=== PATIENT | female | born 1995 | race Caucasian/White ===

== ENCOUNTER 2022-08-07 08:41 | Outpatient (CLI) | payer MEDICAID, SELFPAY ==
--- OUTSIDE RECORDS SUMMARY | 2022-08-07 08:43 | XMS_ITS | Clinical Summary ---
:1995 Author Organization [facility] [place] [address] Care Team Providers Name Role Phone Mackenzie King MD Primary Care Provider [phone] Allergies Active Allergy Reactions Severity Noted Date Comments Bee Venom Protein (Honey Bee) Edema 04/04/2022 Cats (Fur, Dander, Saliva) Runny Nose 03/03/2016 Penicillins 08/20/2010 Medications Medication Sig Dispensed Refills Start Date End Date Status copper intrauterine Inject 1 Device 1 Device 0 09/26/2015 Active device intrauterine one (PARAGARD)Indication time. s: IUD contraception EPINEPHrine (EPIPEN) Inject 0.3 mg (1 2 Each 3 04/16/2022 Active 0.3 mg/0.3 mL pen) intramuscular auto-injectorIndicat each time if needed ions: Allergy to for Allergic honey bee venom Reaction. fluconazole 0 05/16/2022 Active (DIFLUCAN) 150 mg tablet albuterol HFA INHALE 1 TO 2 PUFFS 18 g 0 05/26/2022 Active (Ventolin HFA) 90 BY MOUTH EVERY 4 mcg/actuation HOURS NEEDED inhalerIndications: Cough Active Problems Problem Noted Date Vaginitis and vulvovaginitis 05/22/2021 Acne vulgaris 12/12/2016 Dysmenorrhea 04/29/2013 Allergic rhinitis, cause unspecified 07/12/2011 Encounters Date Type Specialty Care Team Description 07/07/2022 Office Visit Flory Benavides PA Vag inal Problem (07/04 itchy, uncomfor table) 07/07/2022 Travel 06/10/2022 Travel 06/10/2022 Nurse Triage Mackenzie King, Head Injury 05/25/2022 Refill FernandoMackenzie acosta Refi ll Request (Rodri Tate) 05/22/2022 Office Visit Zora Vargas Vaginal Problem (ongoing MD Nina since 05/07) 05/22/2022 Travel 05/15/2022 Telephone Sanjiv Hussein DO Need M eds (Fluconazole) 05/13/2022 Orders Only Sanjiv Hussein, <No sc ans attached> 05/13/2022 Telephone Sanjiv Hussein DO Medica tion Management 05/12/2022 Office Visit Sanjiv Hussein DO Vagina l Problem (Sx x 5 days. Burning a nd itching in vaginal area . Skin tender to touch . No new discharge. Did use a Monistat 1 day on 05/09/22. Symptoms have i mproved. ) 05/12/2022 Travel 05/09/2022 Refill Mackenzie King Refi ll Request (Rodri Tate) from Last 3 Months Immunizations Name Administration Dates Next Due AMB Influenza, IIV4 PF (=>6 mos 08/13/2019 Flulaval,Fluzone Fluarix)(Flu Clinic Only) COVID-19 vaccine (Moderna 01/09/2021, 12/12/2020 100mcg/0.5mL) PF, MDV DTP 1996, 1996 DTaP 04/15/2001, 08/09/1997, 1996 Hepatitis A (Peds) 04/12/2009, 04/06/2008 Hepatitis B (Peds) 01/10/1997, 1996, 1996 Hib Conjugate, Unspecified 04/14/1997, 1996, 6, 1996 Human Papilloma Virus Vaccine 04/29/2013, 07/26/2012, 2010 Inactivated Polio Vaccine 04/15/2001 Influenza, IIV3 (Age >=3 years) 08/22/2013, 07/26/2012, 07/29, 08/20/2010 MMR 04/15/2001, 04/14/1997 Meningococcal Vaccine 09/26/2008 Meningococcal Vaccine (Menveo) 04/29/2013 Polio Virus, Unspecified 1996, 1996, 1996 Tdap 05/25/2020, 05/27/2007 Tuberculin (PPD) 07/23/2012, 08/15/2011 Typhoid (injectable) 04/06/2014 Yellow Fever 04/06/2014 Family History Medical History Relation Name Comments Cancer Maternal Aunt Thyroid Diabetes Maternal Grandfather Hyperlipidemia Maternal Grandmother Allergies Mother Diabetes Paternal Grandfather Relation Name Status Comments Maternal Aunt Maternal Grandfather Maternal Grandmother Mother Paternal Grandfather Social History Tobacco Use Types Packs/Day Years Used Date Never Smoker Smokeless Tobacco: Never Used Tobacco Cessation: Counseling Given: Yes Alcohol Use Standard Drinks/Week Comments Yes 0 (1 standard drink = 0.6 oz pure alcoho l) occ Alcohol Habits Answer Date Recorded How often do you have a drink containing alcohol? Not asked How many drinks containing alcohol do you have on a typical Not asked day when you are drinking? How often do you have six or more drinks on one occasion? No t asked Comment: occ 04/16/2022 Sex Assigned at Date Recorded Not on file Obstetrics History Para Term AB IAB SAB Ectopic Multiple Living Live Births 0 0 0 0 0 0 0 0 0 0 Last Filed Vital Signs Vital Sign Reading Time Taken Comments Blood Pressure 108/70 07/07/2022 11:41 AM CDT Pulse 72 07/07/2022 11:41 AM CDT Temperature 37.4 ??C (99.3 ??F) 04/16/2022 10:06 AM CDT Respiratory Rate 18 04/04/2022 5:18 PM CDT Oxygen Saturation 99% 07/07/2022 11:41 AM CDT Inhaled Oxygen Concentration - - Weight 52 kg (114 lb 11.2 oz) 07/07/2022 11:41 AM CDT Height 165.7 cm (5' 5.25) 04/16/2022 10:06 AM CDT Body Mass Index 18.94 04/16/2022 10:06 AM CDT Plan of Treatment Health Maintenance Due Date Last Done Comments COVID-19 vaccine series (4 - 10/14/2021 08/19/2021, 021, Booster for Moderna series) 12/12/2020 Influenza for age 9-49 05/29/2022 08/13/2019, 08/22/2013, 07/26/2012, Additional history exists BMI (ht and wt on same day) for 04/16/2023 04/16/2022, 01/26, age 18+ 11/01/2020, Additional history exists Depression screening for age 12+ 04/16/2023 04/16/2022, 04/2019, 04/06/2017 Pap test for age 21-65 05/25/2023 05/25/2020, 04/06/2017 Tetanus booster 05/25/2030 05/25/2020, 05/27/2007 HPV series for age 9-26 Completed 04/29/2013, 07/26/2012, 08/14/2011, Additional history exists Hepatitis C screening for age Completed 10/24/2019 18-79 Tdap Completed 05/25/2020, 05/27/2007 Procedures Procedure Name Priority Date/Time Associated Diagnosis Comme nts GC CHLAMYDIA TRACH Routine 07/07/2022 12:02 PM Vaginal irritat ion Results for this PROBE CDT procedure are i n the results section. TRICHOMONAS, Routine 07/07/2022 12:02 PM Vaginal irritation Re sults for this RADHA, AND CDT procedure are i n BACTERIAL VAGINOSIS the resu lts BY VIKASH section. TRICHOMONAS, Routine 05/22/2022 9:52 AM Vaginal irritation Res ults for this RADHA, AND CDT procedure are i n BACTERIAL VAGINOSIS the resu lts BY VIKASH section. TRICHOMONAS, Routine 05/12/2022 8:29 AM Vaginal irritation Res ults for this RADHA, AND CDT procedure are i n BACTERIAL VAGINOSIS the resu lts BY VIKASH section. from Last 3 Months Results TRICHOMONAS, RADHA, AND BACTERIAL VAGINOSIS BY VIKASH (07/07/2022 12:02 PM CDT) Only the most recent of3 resultswithin the time period is included. [facility] Method Time Signature RADHA SPECIES Negative Negative 07/08/2022 [facility] 2:19 AM CDT [facility] RADHA Negative Negative 07/08/2022 [facility] 2:19 AM CDT [facility] TRICHOMONAS VVA Negative Negative 07/08/2022 [facility] 2:19 AM CDT [facility] BACTERIAL Negative Negative 07/08/2022 [facility] V[facility]INOSIS 2:19 AM CDT [facility] Specimen Anatomical Collection Method Collection Time Receive d Time (Source) Location / / Volume Laterality Other VAGINAL SWAB / Non-Blood / 07/07/2022 12:02 2 Unknown Unknown PM CDT 12:14 PM CDT [facility] Performing Organization Address City/State/ZIP Code Phon e Number [facility] [address] [place] [address] [facility]ATORY[facility] 2000 LABORATORY GC & CHLAMYDIA DNA PCR [[id number]] (07/07/2022 12:02 PM CDT) [facility] Method Time Signature CHLAMYDIA PROBE Negative 07/08/2022 [facility] 3:16 AM CDT [facility] TRAL [facility] N GONORRHOEAE Negative 07/08/2022 [facility] PROBE 3:16 AM CDT [facility] Specimen Anatomical Collection Method Collection Time Receive d Time (Source) Location / / Volume Laterality Other VAGINAL SWAB / Non-Blood / 07/07/2022 12:02 2 Unknown Unknown PM CDT 12:14 PM CDT [facility] Performing Organization Address City/State/ZIP Code Phon e Number [facility] [address] [place] [address] LABORATORY[facility] 1999 LABORATORY from Last 3 Months Insurance Payer Benefit Plan / Subscriber ID Effective Dates Phone Addre ss Type Group WC [facility] [id number] 2021-Prese [phone] [employer] COMP INSURANCE nt 58 [address] [place]ER [address] [employer] [place] [facility] [place] [id number] 2022-Presen [address] [place] [address] Guarantor Name Account Type Relation to Date of Phone Bill ing Patient Address Josefa Mendez Personal/Family Self 1995 [address] (Home) [place] [address] Josefa Mendez Workers Comp Self 1995 [address] ([address]) [place] [address] Care Teams Foster Care Case Manager Relationship Specialty Start Date End Date Mackenzie King MD PCP - General Family Practice 08/22/13 [address] [place] [address]
[2022-08-07 11:49] LABS: Glucose* 87 mg/dL (60-115)
== END 2022-08-07 08:42 | disposition home or self-care (01) ==
PROVIDERS: PCP Student in an Organized Health Care Education/Training Program; Visit Provider Physician Assistant
DX: B37.31 Acute candidiasis of vulva and vagina (principal); N89.8 Other specified noninflammatory disorders of vagina
CPT/HCPCS: 82947; 87102; 87158; 87186

== ENCOUNTER 2022-09-30 14:14 | Outpatient (CLI) | payer MEDICAID, SELFPAY ==
[2022-09-30 17:34] LABS: Chlamydia DNA Amplified* NOT DETECTED (No Detected); GC DNA Amplified* NOT DETECTED (No Detected)
== END 2022-09-30 14:15 | disposition home or self-care (01) ==
PROVIDERS: PCP Student in an Organized Health Care Education/Training Program; Visit Provider Registered Nurse
DX: N89.8 Other specified noninflammatory disorders of vagina (principal); B37.31 Acute candidiasis of vulva and vagina
CPT/HCPCS: 87102; 87109; 87491; 87591

== ENCOUNTER 2023-12-24 08:25 | Outpatient (CLI) | payer MEDICAID, SELFPAY ==
[2023-12-24 10:29] LABS: Chlamydia DNA Amplified* NOT DETECTED (No Detected); GC DNA Amplified* NOT DETECTED (No Detected)
== END 2023-12-24 08:26 | disposition home or self-care (01) ==
LOC: NFLDREF 08:26
PROVIDERS: PCP Student in an Organized Health Care Education/Training Program; Visit Provider Physician Assistant
DX: B37.31 Acute candidiasis of vulva and vagina (principal)
CPT/HCPCS: 87491; 87591

== ENCOUNTER 2024-01-06 08:23 | Outpatient (CLI) | payer MEDICAID, SELFPAY ==
--- OUTSIDE RECORDS SUMMARY | 2024-01-06 08:27 | XMS_ITS | Clinical Summary ---
Author Name Unknown Organization [facility] Address [place], [place] [address] Care Team Providers Care Drink Box Mechanic Name Role Phone Mackenzie King MD Primary Care Provider Allergies Active Allergy Reactions Criticality Noted Date Comments Bee Venom Protein (Honey Bee) Edema 2021 Cats (Fur, Dander, Saliva) Runny Nose 6 Penicillins 08/20/2010 Medications Medication Sig Dispensed Refills Start Date End Date Status copper intrauterine device (PARAGARD)Indication s:IUD contraception Inject 1 Device intrauterine one time. 1 Device 0 09/26/2015 Active EPINEPHrine (EPIPEN) 0.3 mg/0.3 mL auto-injectorIndicat ions:Allergy to honey bee venom Inject 0.3 mg (1 Pen) intramuscular each time if needed for Allergic Reaction. 2 Each 3 09/02/2023 Active albuterol HFA (Ventolin HFA) 90 mcg/actuation inhalerIndications:C ough INHALE 1 TO 2 PUFFS BY MOUTH EVERY 4 HOURS NEEDED 18 g 10/20/2023 Active albuterol HFA (Ventolin HFA) 90 mcg/actuation inhalerIndications:C ough INHALE 1 TO 2 PUFFS BY MOUTH EVERY 4 HOURS NEEDED 18 g 5 11/23/2023 Active Active Problems Problem Noted Date Diagnosed Date Pap smear for cervical cancer screening 09/10/20 Overview: 08/2023 NIL/HPV negative. Plan: Pap/HPV due 08/2028. Vaginitis and vulvovaginitis 05/22/2021 Acne vulgaris 12/12/2016 Dysmenorrhea 04/29/2013 Allergic rhinitis, cause unspecified 07/12/2011 Encounters Date Type Department Care Team Description 11/23/2023 Refill [facility] [address] [place] [address] Mackenzie King MD Refill Request; VENTOLIN HFA 10/20/2023 Telephone [facility] [address] [place] [address] Mackenzie King MD Medication Management (albuterol HFA (Ventolin HFA) 90 mcg/actuation inhaler) 10/19/2023 Telephone [facility] [address] [place] [address] Mackenzie King MD Medication Management (albuterol HFA (Ventolin HFA) 90 mcg/actuatio) 10/16/2023 Refill [facility] [address] [place] [address] Mackenzie King MD Refill Request; ALBUTEROL HFA from Last 3 Months Immunizations Name Administration Dates Next Due AMB Influenza, IIV4 PF (=>6 mos Flulaval,Fluzone Fluarix)(Flu Clinic Only) 08/13/2019 COVID-19 vaccine (Moderna 100mcg/0.5mL) PF, MDV 01/09/2021,12/12/2020 DTP 1996,1996 DTaP 04/15/2001,08/09/1997,1996 Hepatitis A (Peds) 04/12/2009,04/06/2008 Hepatitis B (Peds) 01/10/1997,1996, 996 Hib Conjugate, Unspecified 04/14/1997,,1996,06/09 Human Papilloma Virus Vaccine 04/29/2013, 012,08/14/2011 Inactivated Polio Vaccine 04/15/2001 Influenza, IIV3 (Age >=3 years) 08/22/20 13,07/26/2012,08/14/2011,08/20 Influenza,CCIIV4 PRESERV FREE 08/12/2022 MMR 04/15/2001,04/14/1997 Meningococcal Vaccine 09/26/2008 Meningococcal Vaccine (Menveo) 04/29/2013 Polio Virus, Unspecified 1996,1996,0 1996 Tdap 05/25/2020,05/27/2007 Tuberculin (PPD) 07/23/2012,08/15/2011 Typhoid (injectable) 04/06/2014 Yellow Fever 04/06/2014 Family History Medical History Relation Name Comments Rheum arthritis Father takes methot rexate Cancer Maternal Aunt Thyroid Diabetes Maternal Grandfather Hyperlipidemia Maternal Grandmother Allergies Mother Autoimmune disease Mother Diabetes Paternal Grandfather Heart Disease No Family History Hypertension No Family History Relation Name Status Comments Father Alive Maternal Aunt Maternal Grandfather Maternal Grandmother Mother Alive Paternal Grandfather Social History Tobacco Use Types Packs/Day Years Used Date Smoking Tobacco: Never Smokeless Tobacco: Never Tobacco Cessation:Counseling Given: Yes Alcohol Use Standard Drinks/Week Comments Yes 5 (1 standard drink = 0.6 oz pur e alcohol) PHQ-2 Answer Date Recorded PHQ-2 TOTAL SCORE 0 09/02/2023 Social Connections Answer Date Recorded Frequency of Communication with Friends and Fami ly 0 09/02/2023 Financial Resource Strain Answer Date R ecorded Difficulty of Paying Living Expenses 3 09/02/2023 Difficulty of Paying Living Expenses Not on file 09/02/2023 Food Insecurity Answer Date Recorded Worried About Running Out of Food in the Last Ye ar 1 09/02/2023 Transportation Needs Answer Date Record ed Lack of Transportation (Medical) 1 09/02/2023 Housing Stability Answer Date Recorded Unable to Pay for Housing in the Last Year 1 09/02/2023 Sex and Gender Information Value Date Recorded Sex Assigned at Not on file Gender Identity Not on file Sexual Orientation Not on file Obstetrics History Para Term AB IAB SAB Ectopic Multiple Livin g Live Births 0 0 0 0 0 0 0 0 0 0 Last Filed Vital Signs Vital Sign Reading Time Taken Comments Blood Pressure 103/68 09/02/2023 12:58 PM BOTTLING MACHINE OPERATOR Pulse 82 09/02/2023 12:58 PM BOTTLING MACHINE OPERATOR Temperature 36.7 ??C (98.1 ??F) 09/02/2023 12:[address] Respiratory Rate 18 04/04/2022 5:18 PM CDT Oxygen Saturation 97% 09/02/2023 12:58 PM BOTTLING MACHINE OPERATOR Inhaled Oxygen Concentration - - Weight 54.9 kg (121 lb) 09/02/2023 12:58 PM BOTTLING MACHINE OPERATOR Height 164 cm (5' 4.57) 09/02/2023 12:58 PM BOTTLING MACHINE OPERATOR Body Mass Index 20.41 09/02/2023 12:58 PM BOTTLING MACHINE OPERATOR Plan of Treatment Health Maintenance Due Date Last Done Comments COVID-19 vaccine series (2022- season) 2023 08/12/2022, 08/19/2021, 01/09/2021, Additional history exists Influenza for age 9-49 05/29/2024 , 08/13/2019, 08/22/2013, Additional history exists BMI (ht and wt on same day) for age 18+ 09/02/2024 09/02/2023, 04/16/2022, 02/11/2021, Additional history exists Depression screening for age 12+ 09/02/2024 09/02/2023, 04/16/2022, 12/03/2018, Additional history exists Pap test for age 21-65 09/02/2028 , 09/02/2023, 05/25/2020, Additional history exists Tetanus booster 05/25/2030 05/25/2020, 05/27/2007 Hepatitis C screening for age 18-79 Completed 10/24/2019 Tdap Completed 05/25/2020, 05/27/2007 HIV for age 15-65 Completed 04/16/2022, 10/24/2019 Pneumococcal series for age 6-64 Aged Out No longer eligible based on patient's age to complete this topic Procedures Procedure Name Priority Date/Time Associated Diagnosis Comments ORACLE EBS ARCHITECT THIN PREP PAP SCREEN IMAGED Routine 09/02/2023 2:15 PM BOTTLING MACHINE OPERATOR Cervical cancer screening ANTI HIV 1/2 Routine 04/16/2022 11:22 AM CDT Routine screening for STI (sexually transmitted infection) ANTI HCV Routine 10/24/2019 11:19 AM BOTTLING MACHINE OPERATOR Encounter for assessment of STD exposure from Last 3 Months or Most Recently Relevant to Health Maintenance Results * ORACLE EBS ARCHITECT THIN PREP PAP SCREEN IMAGED (09/02/2023 2:15 PM BOTTLING MACHINE OPERATOR) Case Report Gynecologic Cytology Report ? Case: [id number] ? Authorizing Provider: ??Stefany Reece ?Collected: ? 09/02/2023 1415 ? MD Kandace ? Ordering Location: ? [facility] ?? Received: ?09/02/2023 1415 ? Clinic ? First Screen: ?Geetha Flores ? Specimen: ?ORACLE EBS ARCHITECT ThinPrep Vial Screening, Cervical ? 09/10/2023 1:25 PM BOTTLING MACHINE OPERATOR [facility] INTERPRETATION/ RESULT NEGATIVE FOR INTRAEPITHELIAL LESION OR MALIGNANCY (NIL) (none) 09/10/2023 1:25 PM BOTTLING MACHINE OPERATOR [facility] IMEN ADEQUACY Satisfactory for evaluation Endocervical component present 09/10/2023 1:25 PM BOTTLING MACHINE OPERATOR [facility] HPV REQUEST HPV not requested 2022 1:25 PM BOTTLING MACHINE OPERATOR [facility] Date of LMP 08/11/2023 09/10/2023 1:25 PM BOTTLING MACHINE OPERATOR [facility] Last Pap Date 05/25/20 09/10/2023 1:25 PM BOTTLING MACHINE OPERATOR [facility] Last Pap Result NIL 1:25 PM BOTTLING MACHINE OPERATOR [facility] Abnormal Pap or [place] Bx in last 5 years No 09/10/2023 1:25 PM BOTTLING MACHINE OPERATOR [facility] Menstrual Status Regular Periods 09/10/2023 1:25 PM BOTTLING MACHINE OPERATOR [facility] [place] Bx Done Today No 09/10/2023 1:25 PM BOTTLING MACHINE OPERATOR [facility] Additional Information None given 09/10/2023 1:25 PM BOTTLING MACHINE OPERATOR [facility] Comment: Cytology is screened at [facility] - [address], [place] [address] and [facility] - [address], [place] [address] and [facility] - [address] [place] [address] Interpreted at [facility] - [address] [place] [id number] Automated Review Successful 09/10/2023 1:25 PM BOTTLING MACHINE OPERATOR [facility] Comment:Specimen processed s uccessfully by automated archivist military history device, ThinPrep Imaging System, [employer] Note The pap test is a screening technique, not a diagnostic procedure. It is used primarily to screen for squamous cancers and precursor lesions. Published studies have shown that it is subject to both false negative and false positive results. The pap test should not be used as the sole means to diagnose or exclude pre-malignant and malignant lesions. 09/10/2023 1:25 PM BOTTLING MACHINE OPERATOR [facility] Other (Cervical) Non-Blood / Unknown 09/02/2023 2:15 PM BOTTLING MACHINE OPERATOR 09/02/2023 2:15 PM BOTTLING MACHINE OPERATOR Stefany Reece MD PATHOLOGY/ CYTOLOGY [facility] [address] [place] [address], * ANTI HIV 1/2 (04/16/2022 11:22 AM CDT) HIV-1/HIV-2 ANTIBODY Non-Reacti ve Non-Reacti ve 04/17/2022 12:35 AM CDT [facility] Comment:HIV-1 p24 and HIV-1/ HIV-2 Ab not detected. Blood BLOOD SPECIMEN / Unknown Venipuncture / Unknown 04/16/2022 11:22 AM CDT 04/16/2022 11:23 AM CDT Marie Mccrary MD SEND OUTS [facility] [address] [place] [address], * ANTI HCV (10/24/2019 11:19 AM BOTTLING MACHINE OPERATOR) HEPATITIS C ANTIBODY Non-React fabrice Non-React fabrice 10/24/2019 4:48 PM BOTTLING MACHINE OPERATOR [facility] Comment:Antibodies to HCV no t detected; does not exclude the possibility of exposure to HCV. Blood BLOOD SPECIMEN / Unknown Venipuncture / Unknown 10/24/2019 11:19 AM BOTTLING MACHINE OPERATOR 10/24/2019 11:20 AM BOTTLING MACHINE OPERATOR Mireille SINCLAIR SEND OUTS [facility] [address] [place] [address], from Last 3 Months or Most Recently Relevant to Health Maintenance Care Teams Drink Box Mechanic Relationship Specialty Start Date End Date Mackenzie King MD [address] [place] [address] PCP - General Family Practice 08/22/13
== END 2024-01-06 08:24 | disposition home or self-care (01) ==
LOC: NFLDREF 08:24
PROVIDERS: PCP Student in an Organized Health Care Education/Training Program; Visit Provider Registered Nurse
DX: N92.6 Irregular menstruation, unspecified (principal); Z83.49 Family history of other endocrine, nutritional and metabolic diseases; Z13.29 Encounter for screening for other suspected endocrine disorder
CPT/HCPCS: 84443

== ENCOUNTER 2024-10-04 17:33 | Outpatient (CLI) | payer MEDICAID, SELFPAY ==
[2024-10-04 22:29] LABS: Chlamydia DNA Amplified* NOT DETECTED (No Detected); GC DNA Amplified* NOT DETECTED (No Detected)
== END 2024-10-04 17:34 | disposition home or self-care (01) ==
LOC: NFLDREF 17:34
PROVIDERS: PCP Student in an Organized Health Care Education/Training Program; Visit Provider Registered Nurse
DX: Z11.3 Encounter for screening for infections with a predominantly sexual mode of transmission (principal)
CPT/HCPCS: 87491; 87591

== ENCOUNTER 2024-12-20 09:45 | Emergency (ER) | payer MEDICAID, SELFPAY ==
--- OUTSIDE RECORDS SUMMARY | 2024-12-20 09:47 | XMS_ITS | Clinical Summary ---
Author Organization [employer] [facility] Address [address] [place] [address] Care Team Providers Care Elderly Companion Name Role Phone Mackenzie King MD Primary Care Provider Allergies Active Allergy Reactions Criticality Noted Date Comments Bee Venom Protein (Honey Bee) Edema 2021 Cats (Fur, Dander, Saliva) Runny Nose 6 Penicillins 08/20/2010 Medications copper intrauterine device (PARAGARD)Indica tions:IUD contraception Inject 1 Device intrauterine one time. 1 Device 0 09/26/20 15 Active triamcinolone (ARISTOCORT; KENALOG) 0.1 % creamIndications :Rash Apply topically to affected area(s) two times daily. 30 g 10/18/19 25 Active albuterol HFA (Ventolin HFA) 90 mcg/actuation inhalerIndicatio ns:Subacute cough INHALE 1 TO 2 PUFFS BY MOUTH EVERY 4 HOURS NEEDED 18 g 11/21/19 25 Active mometasone-formo terol (Dulera) 100-5 mcg/actuation inhalerIndicatio ns:Asthma, unspecified asthma severity, unspecified whether complicated, unspecified whether persistent (HC) Inhale 2 Puffs by mouth two times daily. 13 g 11 11/29/19 25 Active EPINEPHrine (EPIPEN) 0.3 mg/0.3 mL auto-injectorInd ications:Allergy to honey bee venom Inject 0.3 mg (1 Pen) intramuscular each time if needed for Allergic Reaction. 2 Each 3 11/29/19 25 Active EPINEPHrine (EPIPEN) 0.3 mg/0.3 mL auto-injectorInd ications:Allergy to honey bee venom Inject 0.3 mg (1 Pen) intramuscular each time if needed for Allergic Reaction. 2 Each 3 09/02/20 23 025 Discontinu ed(Reorder (E-cancel not sent)) albuterol HFA (Ventolin HFA) 90 mcg/actuation inhalerIndicatio ns:Cough INHALE 1 TO 2 PUFFS BY MOUTH EVERY 4 HOURS NEEDED 18 g 10/20/19 24 025 Discontinu ed(Reorder (E-cancel not sent)) albuterol HFA (Ventolin HFA) 90 mcg/actuation inhalerIndicatio ns:Cough INHALE 1 TO 2 PUFFS BY MOUTH EVERY 4 HOURS NEEDED 18 g 5 11/23/19 24 025 Discontinu ed(Duplica te therapy (E-cancel not sent)) mometasone-formo terol (Dulera) 200-5 mcg/actuation inhalerIndicatio ns:Asthma, unspecified asthma severity, unspecified whether complicated, unspecified whether persistent (HC) Inhale 2 Puffs by mouth two times daily. 13 g 11 11/29/19 25 025 Discontinu ed(*Error/ entry clerk error) Active Problems Problem Noted Date Diagnosed Date Pap smear for cervical cancer screening 09/10/20 23 Overview (09/17/2023): 08/2023 NIL/HPV negative. Plan: Pap/HPV due 08/2028. Vaginitis and vulvovaginitis 05/22/2021 Acne vulgaris 12/12/2016 Dysmenorrhea 04/29/2013 Allergic rhinitis, cause unspecified 07/12/2011 Encounters Date Type Department Care Team Description 12/20/2024 Nurse Triage [facility] [address] [place] [address] Mackenzie King MD Jaw Pain 11/28/2024 8:40 AM ADMINISTRATION PROFESSIONAL Office Visit [facility] [address] [place] [address] Jesus Phillips MD Allergies (ENVIRONMENTAL ALLERGIES, BEE ALLERGY, DISCUSS IMMUNOTHERAPY (self referral)) 11/28/2024 Travel 11/21/2024 1:25 PM ADMINISTRATION PROFESSIONAL Office Visit [facility] [address] [place] [address] Mackenzie King MD Physical (29 yr/Labs/Left thumb is sore/Right big toe, is sore./Nose recently started hurting where it had been broken in past.) 11/21/2024 Travel 10/27/2024 Telephone [facility] [address] [place] [address] Jesus Phillips MD Appointment 10/17/2024 Refill [facility] [address] [place] [address] Misty Selby, Refill Request (Triamcinolone) from Last 3 Months Immunizations Immunization Administration Dates Next Due AMB Influenza, IIV4 PF (=>6 mos Flulaval,Fluzone Fluarix)(Flu Clinic Only) 08/13/2019 COVID-19 vaccine (Moderna 100mcg/0.5mL) PF, MDV 01/09/2021,12/12/2020 DTP 1996,1996 DTaP 04/15/2001,08/09/1997,1996 Hepatitis A (Peds) 04/12/2009,04/06/2008 Hepatitis B (Peds) 01/10/1997,1996, 996 Hib Conjugate, Unspecified 04/14/1997,,1996,06/09 Human Papilloma Virus Vaccine 04/29/2013, 012,08/14/2011 Inactivated Polio Vaccine 04/15/2001 Influenza, IIV3 (Age >=3 years) 08/22/20 13,07/26/2012,08/14/2011,08/20 Influenza,CCIIV4 PRESERV FREE 08/12/2022 MENINGOCOCCAL VACCINE 2 VIAL 2MO-55YO (MENVEO) 04/29/2013 MMR 04/15/2001,04/14/1997 Meningococcal Vaccine 09/26/2008 Polio Virus, Unspecified 1996,1996,0 1996 Tdap 05/25/2020,05/27/2007 [...] Answer Date Recorded PHQ-2 TOTAL SCORE 0 11/21/2024 Social Connections Answer Date Recorded Do you often feel lonely or isolated from those around you? 0 11/21/2024 Financial Resource Strain Answer Date R ecorded Difficulty of Paying Living Expenses 3 11/21/2024 Difficulty of Paying Living Expenses Not on file 11/21/2024 Food Insecurity Answer Date Recorded Do you worry your food will run out before you are able to buy more? 1 11/21/2024 Transportation Needs Answer Date Record ed Does lack of transportation keep you from medica l appointments? 1 11/21/2024 Does lack of transportation keep you from work, meetings or getting things that you need? 1 11/21/2024 Housing Stability Answer Date Recorded What is your housing situation today? 1 11/21/2024 Utilities Answer Date Recorded Do you have trouble paying f or utilities (for example, heat, electricity, water, phone)? 1 11/21/2024 Comments No Sex and Gender Information Value Date Recorded Sex Assigned at Not on file Legal Sex Female 8:01 AM ADMINISTRATION PROFESSIONAL Gender Identity Not on file Sexual Orientation Not on file Occupation Industry Job Start Date Job End Date [employer] Not on file Not on file Not on file Obstetrics History Para Term AB IAB SAB Ectopic Multiple Livin g Live Births 0 0 0 0 0 0 0 0 0 0 Last Filed Vital Signs Vital Sign Reading Time Taken Comments Blood Pressure 107/71 11/28/2024 8:41 AM ADMINISTRATION PROFESSIONAL Pulse 71 11/28/2024 8:41 AM ADMINISTRATION PROFESSIONAL Temperature 36.7 C (98.1 F) 11/28/2024 8:41 AM ADMINISTRATION PROFESSIONAL Respiratory Rate 18 05/17/2024 1:10 PM CDT Oxygen Saturation 98% 11/28/2024 8:41 AM ADMINISTRATION PROFESSIONAL Inhaled Oxygen Concentration - - Weight 63.1 kg (139 lb 3.2 oz) 11/28/2024 8:41 A M ADMINISTRATION PROFESSIONAL Height 165.5 cm (5' 5.16) 11/28/2024 8:41 AM CS T Body Mass Index 23.05 11/28/2024 8:41 AM ADMINISTRATION PROFESSIONAL Plan of Treatment Upcoming Encounters Date Type Department Care Team (Late st Contact Info) Description 01/02/2025 8:00 AM CDT Office Visit [facility] [address] [facility] [address] [place], [place] [id number] Neo Griffin MD [address] [facility] [address] [place], [place] [id number] 02/02/2025 3:45 PM CDT Office Visit [facility] [address] [place] [address] Sandra Parsons MD [address] [facility] [address] [facility] [address] [place], [place] [id number] Health Maintenance Due Date Last Done Comments COVID-19 vaccine series ( season) 2024 08/12/2022, 08/19/2021, 01/09/2021, Additional history exists Influenza Vaccine (#1) 2024 , 08/13/2019, 08/22/2013, Additional history exists Depression screening for age 12+ 11/21/2025 11/21/2024, 09/02/2023, 04/16/2022, Additional history exists BMI (ht and wt on same day) for age 18+ 11/28/2025 11/28/2024, 11/21/2024, 09/02/2023, Additional history exists Pap test for age 21-65 01/05/2029 4, 01/06/2024, 09/02/2023, Additional history exists Tetanus booster 05/25/2030 05/25/2020, 05/27/2007 Hepatitis C screening for age 18-79 Completed 10/24/2019 Tdap Completed 05/25/2020, 05/27/2007 HIV for age 15-65 Completed 04/16/2022, 10/24/2019 Pneumococcal series for age 6-49 Aged Out No longer eligible based on patient's age to complete this topic Procedures Procedure Name Priority Date/Time Associated Diagnosis Comments MA PERCUTANEOUS TESTS W/ALLERGENIC EXTRACTS Routine 11/28/2024 12:00 AM ADMINISTRATION PROFESSIONAL Allergic rhinitis, unspecified seasonality, unspecified trigger Asthma, unspecified asthma severity, unspecified whether complicated, unspecified whether persistent (HC) ANTINUCLEAR ANTIBODIES TITER AND PATTERN ([facility] REFLEX ONLY) Routine 11/21/2024 2:19 PM ADMINISTRATION PROFESSIONAL HEMOGLOBIN A1C Routine 11/21/2024 2:19 PM ADMINISTRATION PROFESSIONAL Diabetes mellitus screening CBC WITH AUTO DIFFERENTIAL Routine 11/21/2024 2:19 PM ADMINISTRATION PROFESSIONAL Chronic pain of left thumb Great toe pain, right COMP METABOLIC PANEL Routine 11/21/2024 2:19 PM ADMINISTRATION PROFESSIONAL Diabetes mellitus screening Family history of chronic liver disease LIPID PANEL W REFLEX MEASURED LDL Routine 11/21/2024 2:19 PM ADMINISTRATION PROFESSIONAL Lipid screening RA QUANTITATIVE Routine 11/21/2024 2:19 PM ADMINISTRATION PROFESSIONAL Chronic pain of left thumb Great toe pain, right C-REACTIVE PROTEIN Routine 11/21/2024 2: 19 PM ADMINISTRATION PROFESSIONAL Chronic pain of left thumb Great toe pain, right ANTINUCLEAR ANTIBODY BY IFA Routine 11/21/2024 2:19 PM ADMINISTRATION PROFESSIONAL Chronic pain of left thumb Great toe pain, right SEDIMENTATION RATE Routine 11/21/2024 2: 19 PM ADMINISTRATION PROFESSIONAL Chronic pain of left thumb Great toe pain, right TSH WITH REFLEX Routine 11/21/2024 2:19 PM ADMINISTRATION PROFESSIONAL Family history of thyroid disease ASP DEVELOPER THIN PREP PAP SCREEN IMAGED Routine 01/06/2024 8:35 AM CDT ANTI HIV 1/2 Routine 04/16/2022 11:22 AM CDT Routine screening for STI (sexually transmitted infection) ANTI HCV Routine 10/24/2019 11:19 AM ADMINISTRATION PROFESSIONAL Encounter for assessment of STD exposure from Last 3 Months or Most Recently Relevant to Health Maintenance Results * MA PERCUTANEOUS TESTS W/ALLERGENIC EXTRACTS (11/28/2024 12:00 AM ADMINISTRATION PROFESSIONAL) us Jesus Phillips MD PB - ALLERGY AND IMMUNOLOG Y SERVICES Edited Result - Final * (ABNORMAL) ANTINUCLEAR ANTIBODIES TITER AND PATTERN ([facility] REFLEX ONLY) (11/21/2024 2:19 PM ADMINISTRATION PROFESSIONAL) HO TITER 1:80(H) titer [facility] [facility] [place] Comment: A low level HO titer may be present in pre-clinical autoimmune diseases and normal individuals. Reference Range <1:40 Negative 1:40-1:80 Low Antibody Level >1:80 Elevated Antibody Level HO PATTERN Nuclear, Speckled( A) [facility] Comment: Speckled pattern is associated with mixed connective tissue disease (MCTD), systemic lupus erythematosus (SLE), Sjogren's syndrome, dermatomyositis, and systemic sclerosis/polymyositis overlap. AC-2,4,5,29: Speckled International Consensus on HO Patterns (https://doi.org/10.1515/ktfo-3412-8749) 11/21/2024 2:19 PM ADMINISTRATION PROFESSIONAL 11/21/2024 2:20 PM ADMINISTRATION PROFESSIONAL Mackenzie King MD LABORATORY Final R esult [employer] [facility] [address] [place] [address], [place] [phone] [facility] [address] [place] [address] * SEDIMENTATION RATE (11/21/2024 2:19 PM ADMINISTRATION PROFESSIONAL) Pathologist [facility] SED RATE BY MODIFIED WESTERGREN 9 < OR = 20 mm/h [facility] [place] Blood BLOOD SPECIMEN / Unknown 11/21/2024 2:19 PM ADMINISTRATION PROFESSIONAL 11/21/2024 2:20 PM ADMINISTRATION PROFESSIONAL us Mackenzie King MD HEMATOLOGY Final R esult Performing Organization Address City/[facility]/ZIP Co de Phone Number [facility] [address] [place] [address], [place] [phone] [facility] [address] [place] [address] * (ABNORMAL) ANTINUCLEAR ANTIBODY BY IFA (11/21/2024 2:19 PM ADMINISTRATION PROFESSIONAL) Pathologist [facility] HO SCREEN, IFA POSITIVE( A) NEGATIVE [facility] [place] Comment: OH IFA is a first line screen for detecting the presence of up to approximately 150 autoantibodies in various autoimmune diseases. A positive HO IFA result is suggestive of autoimmune disease and reflexes to titer and pattern. Further laboratory testing may be considered if clinically indicated. For additional information, please refer to http://education.Vaximm/faq/YUS410 (This link is being provided for informational/ educational purposes only.) Blood BLOOD SPECIMEN / Unknown 11/21/2024 2:19 PM ADMINISTRATION PROFESSIONAL 11/21/2024 2:20 PM ADMINISTRATION PROFESSIONAL us Mackenzie King MD CHEMISTRY Final R esult [facility] [address] [place] [address], [place] [phone] [facility] [address] [place] [address] * HEMOGLOBIN A1C (11/21/2024 2:19 PM ADMINISTRATION PROFESSIONAL) HEMOGLOBIN A1C 5.3 <5.7 % of total Hgb [facility] Comment: For the purpose of screening for the presence of diabetes: <5.7% Consistent with the absence of diabetes 5.7-6.4% Consistent with increased risk for diabetes (prediabetes) > or =6.5% Consistent with diabetes This assay result is consistent with a decreased risk of diabetes. Currently, no consensus exists regarding use of hemoglobin A1c for diagnosis of diabetes in children. According to [place] Diabetes Association (ADA) guidelines, hemoglobin A1c <7.0% represents optimal control in non- diabetic patients. Different metrics may apply to specific patient populations. Standards of Medical Care in Diabetes(ADA). Blood BLOOD SPECIMEN / Unknown 11/21/2024 2:19 PM ADMINISTRATION PROFESSIONAL 11/21/2024 2:20 PM ADMINISTRATION PROFESSIONAL Mackenzie King MD CHEMISTRY Final R esult [employer] [address] [address], [employer] [address] * TSH WITH REFLEX (11/21/2024 2:19 PM ADMINISTRATION PROFESSIONAL) TSH W/REFLEX TO FT4 0.69 mIU/L [facility] [place] Comment: Reference Range > or = 20 Years 0.40-4.50 Ranges First trimester 0.26-2.66 Second trimester 0.55-2.73 Third trimester 0.43-2.91 Blood BLOOD SPECIMEN / Unknown 11/21/2024 2:19 PM ADMINISTRATION PROFESSIONAL 11/21/2024 2:20 PM ADMINISTRATION PROFESSIONAL Mackenzie King MD CHEMISTRY Final R esult [employer] [address] [place] [address], [facility] [address] [place] [address] * (ABNORMAL) LIPID PANEL W REFLEX MEASURED LDL (11/21/2024 2:19 PM ADMINISTRATION PROFESSIONAL) CHOLESTEROL, TOTAL 197 <200 mg/dL [facility] HDL CHOLESTEROL 54 > OR = 50 mg/dL [facility] TRIGLYCERIDES 170(H) <150 mg/dL [facility] LDL-CHOLESTEROL 114(H) mg/dL (calc) [facility] Comment: Reference range: <100 Desirable range <100 mg/dL for primary prevention; <70 mg/dL for patients with CHD or diabetic patients with > or = 2 CHD risk factors. LDL-C is now calculated using the Itzel calculation, which is a validated novel method providing better accuracy than the Friedewald equation in the estimation of LDL-C. Jacques SS et al. DAISY. 2013;310(19): 4891-7001 (http://education.Vaximm/faq/EEB951) CHOL/HDLC RATIO 3.6 <5.0 (calc) [facility] NON HDL CHOLESTEROL 143(H) <130 mg/dL (calc) [facility] Comment: For patients with diabetes plus 1 major ASCVD risk factor, treating to a non-HDL-C goal of <100 mg/dL (LDL-C of <70 mg/dL) is considered a therapeutic option. Blood BLOOD SPECIMEN / Unknown 11/21/2024 2:19 PM ADMINISTRATION PROFESSIONAL 11/21/2024 2:20 PM ADMINISTRATION PROFESSIONAL Mackenzie King MD CHEMISTRY Final R esult [employer] [facility] [address] [facility] [place] [address], [facility] [address] [place] [address] * RA QUANTITATIVE (11/21/2024 2:19 PM ADMINISTRATION PROFESSIONAL) Pathologist [facility] RHEUMATOID FACTOR <10 <14 IU/mL [facility] [place] Blood BLOOD SPECIMEN / Unknown 11/21/2024 2:19 PM ADMINISTRATION PROFESSIONAL 11/21/2024 2:20 PM ADMINISTRATION PROFESSIONAL Mackenzie King MD SEND OUTS Final R esult [employer] [facility] [address] [place] [address], [place] [phone] [facility] [address] [place] [address] * C-REACTIVE PROTEIN (11/21/2024 2:19 PM ADMINISTRATION PROFESSIONAL) Pathologist [facility] C-REACTIVE PROTEIN <3.0 <8.0 mg/L [facility] [place] Blood BLOOD SPECIMEN / Unknown 11/21/2024 2:19 PM ADMINISTRATION PROFESSIONAL 11/21/2024 2:20 PM ADMINISTRATION PROFESSIONAL us Mackenzie King MD CHEMISTRY Final R esult Performing Organization Address City/[facility]/ZIP Co de Phone Number [employer] [facility] [address] [place] [address], [place] [phone] [facility] [address] [place] [address] * (ABNORMAL) CBC AND DIFFERENTIAL (11/21/2024 2:19 PM ADMINISTRATION PROFESSIONAL) WHITE BLOOD CELL COUNT 9.0 3.8 - 10.8 Thousand/u L [facility] RED BLOOD CELL COUNT 5.02 3.80 - 5.10 Million/uL [facility] HEMOGLOBIN 14.8 11.7 - 15.5 g/dL [facility] HEMATOCRIT 44.9 35.0 - 45.0 % [facility] MCV 89.4 80.0 - 100.0 fL [facility] MCH 29.5 27.0 - 33.0 pg [facility] MCHC 33.0 32.0 - 36.0 g/dL [facility] Comment: For adults, a slight decrease in the calculated MCHC value (in the range of 30 to 32 g/dL) is most likely not clinically significant; however, it should be interpreted with caution in correlation with other red cell parameters and the patient's clinical condition. RDW 12.9 11.0 - 15.0 % [facility] PLATELET COUNT 498(H) 140 - 400 Thousand/u L [facility] MPV 10.5 7.5 - 12.5 fL [facility] ABSOLUTE NEUTROPHILS 5,013 1,500 - 7,800 cells/uL [facility] ABSOLUTE LYMPHOCYTES 2,772 850 - 3,900 cells/uL [facility] ABSOLUTE MONOCYTES 567 200 - 950 cells/uL [facility] ABSOLUTE EOSINOPHILS 576(H) 15 - 500 cells/uL [facility] ABSOLUTE BASOPHILS 72 0 - 200 cells/uL [facility] NEUTROPHILS 55.7 % [facility] LYMPHOCYTES 30.8 % [facility] MONOCYTES 6.3 % [facility] EOSINOPHILS 6.4 % [facility] BASOPHILS 0.8 % [facility] Blood BLOOD SPECIMEN / Unknown 11/21/2024 2:19 PM ADMINISTRATION PROFESSIONAL 11/21/2024 2:20 PM ADMINISTRATION PROFESSIONAL us Mackenzie King MD HEMATOLOGY Final R esult [facility] [address] [place] [address], [facility] [address] [place] [address] * COMP METABOLIC PANEL (11/21/2024 2:19 PM ADMINISTRATION PROFESSIONAL) [facility] GLUCOSE 78 65 - 99 mg/dL [facility] Comment: Fasting reference interval UREA NITROGEN (BUN) 10 7 - 25 mg/dL [facility] CREATININE 0.65 0.50 - 0.96 mg/dL [facility] EGFR 123 > OR = 60 mL/min/1. 73m2 [facility] BUN/CREATININE RATIO SEE NOTE: 6 - 22 (calc) [facility] Comment: Not Reported: BUN and Creatinine are within reference range. SODIUM 138 135 - 146 mmol/L [facility] POTASSIUM 4.3 3.5 - 5.3 mmol/L [facility] CHLORIDE 103 98 - 110 mmol/L [facility] CARBON DIOXIDE 28 20 - 32 mmol/L [facility] CALCIUM 9.6 8.6 - 10.2 mg/dL [facility] PROTEIN, TOTAL 7.2 6.1 - 8.1 g/dL [facility] ALBUMIN 4.3 3.6 - 5.1 g/dL [facility] GLOBULIN 2.9 1.9 - 3.7 g/dL (calc) [facility] ALBUMIN/GLOBULIN RATIO 1.5 1.0 - 2.5 (calc) [facility] BILIRUBIN, TOTAL 1.0 0.2 - 1.2 mg/dL [facility] ALKALINE PHOSPHATASE 90 31 - 125 U/L [facility] AST 17 10 - 30 U/L [facility] ALT 17 6 - 29 U/L [facility] Blood BLOOD SPECIMEN / Unknown 11/21/2024 2:19 PM ADMINISTRATION PROFESSIONAL 11/21/2024 2:20 PM ADMINISTRATION PROFESSIONAL Mackenzie King MD CHEMISTRY Final R esult [employer] [place] [id number] [place] [address], [facility] [address] [place] [address] * ASP DEVELOPER THIN PREP PAP SCREEN IMAGED (01/06/2024 8:35 AM CDT) Case Report Gynecologic Cytology Report Case: [id number] Authorizing Provider: Pam Simmons NP Collected: 01/06/2024 0835 Ordering Location: [facility] Received: 01/06/2024 1736 First Screen: [place] Specimen: ASP DEVELOPER ThinPrep Vial Screening, Cervical 01/16/2024 12:40 PM CDT [facility] [employer] [facility] INTERPRETATION/ RESULT NEGATIVE FOR INTRAEPITHELIAL LESION OR MALIGNANCY (NIL) (none) 01/16/2024 12:40 PM CDT [facility] IMEN ADEQUACY Satisfactory for evaluation Endocervical component present 01/16/2024 12:40 PM CDT [facility] [employer] [facility] HPV REQUEST HPV and PAP 01/16/2024 12:40 PM CDT [facility] [employer] [facility] Date of LMP 12/22/2023 01/16/2024 12:40 PM CDT [facility] Last Pap Date 06/13/2020 01/16/2024 12:40 PM CDT [facility] Last Pap Result NIL 12:40 PM CDT [facility] Menstrual Status Irregular Periods 01/16/2024 12:40 PM CDT [facility] [place] Bx Done Today No 01/16/2024 12:40 PM CDT [facility] Additional Information 01/16/2024 12:40 PM CDT [facility] Comment: [facility] - [address], [place] [address] Automated Review Successful 01/16/2024 12:40 PM CDT [facility] [employer] [facility] Comment:Specimen processed s uccessfully by automated core cutter and reamer device, ThinPrep Imaging System, [employer] ANCILLARY TESTING ASP DEVELOPER HPV Ordered, Please see separate report 01/16/2024 12:40 PM CDT [facility] Note The pap test is a screening technique, not a diagnostic procedure. It is used primarily to screen for squamous cancers and precursor lesions. Published studies have shown that it is subject to both false negative and false positive results. The pap test should not be used as the sole means to diagnose or exclude pre-malignant and malignant lesions. 01/16/2024 12:40 PM CDT [facility] Other (Cervical) 01/06/2024 8:35 AM CDT 01/06/2024 5:33 PM CDT Pam Simmons NP PATHOLOGY/CYTOLOGY Final Result [facility] [address] [place] [address], [place] * ANTI HIV 1/2 (04/16/2022 11:22 AM CDT) HIV-1/HIV-2 ANTIBODY Non-Reacti ve Non-Reacti ve 04/17/2022 12:35 AM CDT [facility] Comment:HIV-1 p24 and HIV-1/ HIV-2 Ab not detected. Blood BLOOD SPECIMEN / Unknown Venipuncture / Unknown 04/16/2022 11:22 AM CDT 04/16/2022 11:23 AM CDT Marie Mccrary MD SEND OUTS Final Resul t [facility] [address] [place] [address], [place] * ANTI HCV (10/24/2019 11:19 AM ADMINISTRATION PROFESSIONAL) HEPATITIS C ANTIBODY Non-React fabrice Non-React fabrice 10/24/2019 4:48 PM ADMINISTRATION PROFESSIONAL [facility] Comment:Antibodies to HCV no t detected; does not exclude the possibility of exposure to HCV. Blood BLOOD SPECIMEN / Unknown Venipuncture / Unknown 10/24/2019 11:19 AM ADMINISTRATION PROFESSIONAL 10/24/2019 11:20 AM ADMINISTRATION PROFESSIONAL Mireille SINCLAIR SEND OUTS Final Result [facility] [address] [place] [address], [place] from Last 3 Months or Most Recently Relevant to Health Maintenance Insurance [facility] [place] [facility] INSUR[facility] Care Teams Elderly Companion Relationship Specialty Start Date End Date Mackenzie King MD [address] [place] [address] PCP - General Family Practice 08/22/13
[2024-12-20 09:50] VITALS: BP 103/59; PULSE 70; RESP 18; TEMP 36.3; O2SAT 99; BMI 23.0
--- NOTE | 2024-12-20 10:03 | ED.GENADULT ---
HPI - General Adult General Date Seen: 12/20/24 Chief complaint: Jaw Injury/Pain Stated complaint: jaw pain Time Seen by Provider: 12/20/24 10:03 Source: patient Mode of arrival: ambulatory Limitations: no limitations History of Present Illness HPI narrative: Patient is a 29-year-old female presenting for right-sided jaw pain just anterior to her right ear. She states this has been going on for the past week. She has not been taking anything for pain because she was hoping to get better on its own. Pain has persisted it is worse whenever she chews so she called the triage line and she was told to come to the emergency department. She states pain is always better in the morning gets worse throughout the day. She has difficulty open her mouth fully due to who the pain to her right side of the jaw. Also has difficulty fully closing her mouth due to this. Denies ever having symptoms like this before. Denies difficulty swallowing or breathing. Denies any ear pain or difficulty hearing. No other concerns noted. Has not noticed any swelling under her tongue. When she does open her jaw she notices a very slight and dull clicking sound. Related Data Home Medications ?Medication ?Instructions ?Recorded ?Confirmed albuterol sulfate 90 mcg/actuation 2 inh inhalation DAILY PRN 08/07/22 10/04/24 breath activated powder inhaler copper 380 square mm intrauterine 1 device intrauterine ONCE 10/04/24 10/04/24 device (ParaGard T 380A) mometasone-formoterol HFA 100 2 puff inhalation BID 12/20/24 12/20/24 mcg-5 mcg/actuation aerosol inhaler (Dulera) Previous Rx's ?Medication ?Instructions ?Recorded diazepam 2 mg tablet 2 mg PO ONCE PRN anxiety #1 tab 10/04/24 cyclobenzaprine 10 mg tablet 10 mg PO TID PRN muscle spasm #15 12/20/24 tabs ketorolac 10 mg tablet 10 mg PO Q6H PRN pain #20 tabs 12/20/24 Allergies Allergy/AdvReac Type Severity Reaction Status Date / Time penicillin V Allergy Intermediate Hives Verified 10/04/24 12:59 Review of Systems Status of ROS: Reports: 10 or more systems reviewed and unremarkable except as noted in History and below PFSH PFS Medical History Yeast vaginitis (12/2021) ?B37.31 - Acute candidiasis of vulva and vagina (ICD-10) Asthma ?J45.909 - Unspecified asthma, uncomplicated (ICD-10) Surgical History History of removal of cyst ?Z98.890 - Other specified postprocedural states (ICD-10) Hx of LASIK ?Z98.890 - Other specified postprocedural states (ICD-10) Family History Paternal Grandfather Heart disease Diabetes Aunt Thyroid disease Maternal Grandfather Diabetes Paternal Grandfather Alcohol dependence 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 Nonsmoker. Alcohol: 6 drinks/ week Smoking Status: Never smoker Exam Narrative: Exam Narrative: Const: Well-nourished, Well-developed, in mild distress Eyes: PERRL, no conjunctival injection, and symmetrical lids HENT: Atraumatic external nose and ears. Moist mucous membranes. No clicking felt at her TMJ joint. Uvula midline, no tonsillar exudate or swelling. No swelling noted underneath the tongue. Good dentition. Tympanic membranes normal bilaterally. No tenderness noted posterior to her right ear. Neck: Symmetric, trachea midline, No thyromegaly. MSK:Extremities w/o deformity, Normal Active ROM Skin: Warm, Dry. No rashes or lesions. Neuro: Normal Muscle tone, No focal neurological deficits. Psych: Awake, Alert, & Oriented x3. Appropriate mood and affect. Const: Vital Signs, click to edit/add: Vital Signs - 24 hr 12/20/24 09:50 Temperature 97.4 F L Pulse Rate [Pulse Oximeter] 70 Respiratory Rate 18 Blood Pressure [Ri ght Upper Arm] 103/59 L Pulse Oximetry 99 Oxygen Delivery Me thod Room Air Course Vital Signs Vital signs: Initial Vital Signs Temperature 97.4 F L 12/20/24 09:50 Temperature Source Temporal Artery Scan 12/20/24 09:50 Pulse Rate 70 12/20/24 09:50 Respiratory Rate 18 12/20/24 09:50 Blood Pressure 103/59 L 12/20/24 09:50 Blood Pressure Mean 73 12/20/24 09:50 Pulse Oximetry 99 12/20/24 09:50 Oxygen Delivery Method Room Air 12/20/24 09:50 Vital Signs Temperature 97.4 F L 12/20/24 09:50 Pulse Rate 70 12/20/24 09:50 Respiratory Rate 18 12/20/24 09:50 Blood Pressure 103/59 L 12/20/24 09:50 Pulse Oximetry 99 12/20/24 09:50 Oxygen Delivery Method Room Air 12/20/24 09:50 Temperature 97.4 F L 12/20/24 09:50 Pulse Rate 70 12/20/24 09:50 Respiratory Rate 18 12/20/24 09:50 Blood Pressure 103/59 L 12/20/24 09:50 Pulse Oximetry 99 12/20/24 09:50 Oxygen Delivery Method Room Air 12/20/24 09:50 Medical Decision Making MDM Narrative Medical decision making narrative: Patient is a 29-year-old female presenting for jaw pain. She is having some mild trismus secondary to the pain and also unable to fully close the mouth due to the pain. Based on clinical exam this seems most likely to be TMJ dysfunction. Patient is not showing signs of peritonsillar abscess, Lars angina, retropharyngeal abscess,Lemierre disease or any other concerning oral pharynx or deep neck space abscesses. Imaging is not necessary. I believe she is safe for discharge. I will discharge her home with Toradol for pain control along with a muscle relaxer. Did inform worsening use a follow-up with her dentist. She is agreeable to this plan. Discharge Plan Discharge Clinical Impression: TMJ dysfunction Patient Disposition: Home, Self-Care Condition: Stable Instructions: Temporomandibular Disorder (ED) Additional Instructions: Make sure to follow-up with your primary care provider and/or dentist. Take Toradol as needed for pain along with the muscle relaxer Flexeril. While using Toradol do not use other NSAIDs as they are the same class of drugs. You can continue take Tylenol throughout this. If he started having stomach discomfort with the Toradol stop taking at as that can be a side effect. Return to emergency department for new or worsening symptoms including but not limited to difficulty breathing or swallowing. Prescriptions: New cyclobenzaprine 10 mg tablet 10 mg PO TID PRN (Reason: muscle spasm) Qty: 15 0RF ketorolac 10 mg tablet 10 mg PO Q6H PRN (Reason: pain) Qty: 20 0RF Rx Instructions: maximum total duration of 5 days from all oral, intranasal, or parenteral formulations No Action ParaGard T 380A 380 square mm intrauterine device 1 device intrauterine ONCE Rx Instructions: as a single dose albuterol sulfate 90 mcg/actuation aerosol powdr breath activated 2 inh inhalation DAILY PRN Dulera 100-5 mcg/actuation HFA aerosol inhaler 2 puff INHALATION BID diazepam 2 mg tablet 2 mg PO ONCE PRN (Reason: anxiety) Qty: 1 0RF Rx Instructions: 30minutes prior to procedure Follow Up/Referrals: Flory Benavides PA-C [Primary Care Provider] - Stand Alone Forms: MyHealth Info Instructions
--- OUTSIDE RECORDS SUMMARY | 2024-12-20 10:16 | XMS_ITS | Clinical Summary ---
Author Organization [facility] Address [address] [place] [address] Care Team Providers Care Human Service Coordinator Name Role Phone Mackenzie King MD Primary [...] 11 11/29/19 25 025 Discontinu ed(*Error/ entry level manager error) Active Problems Problem Noted Date Diagnosed Date Pap smear for cervical cancer screening 09/10/20 23 Overview (09/17/2023): 08/2023 NIL/HPV negative. Plan: Pap/HPV due 08/2028. Vaginitis and vulvovaginitis 05/22/2021 Acne vulgaris 12/12/2016 Dysmenorrhea 04/29/2013 Allergic rhinitis, cause unspecified 07/12/2011 Encounters Date Type Department Care Team Description 12/20/2024 Nurse Triage [facility] [address] [place] [address] Mackenzie King MD Jaw Pain 11/28/2024 8:40 AM WAIVER ANALYST Office Visit [facility] [address] [place] [address] Jesus Phillips MD Allergies (ENVIRONMENTAL ALLERGIES, BEE ALLERGY, DISCUSS IMMUNOTHERAPY (self referral)) 11/28/2024 Travel 11/21/2024 1:25 PM WAIVER ANALYST Office Visit [facility] [address] [place] [address] Mackenzie King MD Physical (29 yr/Labs/Left thumb is sore/Right big toe, is sore./Nose recently started hurting where it had been broken in past.) 11/21/2024 Travel 10/27/2024 [facility]phone [facility] [address] [place] [address] Jesus Phillips MD Appointment 10/17/2024 Refill [facility] [address] [place] [address] Misty Selby, Refill Request (Triamcinolone) from Last [...] on file Legal Sex Female 8:01 AM WAIVER ANALYST Gender Identity Not on file Sexual Orientation [...] Comments Blood Pressure 107/71 11/28/2024 8:41 AM WAIVER ANALYST Pulse 71 11/28/2024 8:41 AM WAIVER ANALYST Temperature 36.7 C (98.1 F) 11/28/2024 8:41 AM WAIVER ANALYST Respiratory Rate 18 05/17/2024 1:10 PM CDT Oxygen Saturation 98% 11/28/2024 8:41 AM WAIVER ANALYST Inhaled Oxygen Concentration - - Weight 63.1 kg (139 lb 3.2 oz) 11/28/2024 8:41 A M WAIVER ANALYST Height 165.5 cm (5' 5.16) 11/28/2024 8:41 AM CS T Body Mass Index 23.05 11/28/2024 8:41 AM WAIVER ANALYST Plan of Treatment Upcoming Encounters Date Type Department Care Team (Late st Contact Info) Description 01/02/2025 8:00 AM CDT Office Visit [facility] [address] [facility] [address] [place], [place] [phone] Neo Griffin MD [address] [facility] [address] [place], [place] [phone] 02/02/2025 3:45 PM CDT Office Visit [facility] [address] [place] [address] Sandra Parsons MD [address] [facility] [address] [facility] [address] [place], [place] [id number] Health Maintenance Due Date Last Done Comments [...] Procedure Name Priority Date/Time Associated Diagnosis Comments TX PERCUTANEOUS TESTS W/ALLERGENIC EXTRACTS Routine 11/28/2024 12:00 AM WAIVER ANALYST Allergic rhinitis, unspecified seasonality, unspecified trigger Asthma, unspecified asthma severity, unspecified whether complicated, unspecified whether persistent (HC) ANTINUCLEAR ANTIBODIES TITER AND PATTERN ([facility] REFLEX ONLY) Routine 11/21/2024 2:19 PM WAIVER ANALYST HEMOGLOBIN A1C Routine 11/21/2024 2:19 PM WAIVER ANALYST Diabetes mellitus screening CBC WITH AUTO DIFFERENTIAL Routine 11/21/2024 2:19 PM WAIVER ANALYST Chronic pain of left thumb Great toe pain, right COMP METABOLIC PANEL Routine 11/21/2024 2:19 PM WAIVER ANALYST Diabetes mellitus screening Family history of chronic liver disease LIPID PANEL W REFLEX MEASURED LDL Routine 11/21/2024 2:19 PM WAIVER ANALYST Lipid screening RA QUANTITATIVE Routine 11/21/2024 2:19 PM WAIVER ANALYST Chronic pain of left thumb Great toe pain, right C-REACTIVE PROTEIN Routine 11/21/2024 2: 19 PM WAIVER ANALYST Chronic pain of left thumb Great toe pain, right ANTINUCLEAR ANTIBODY BY IFA Routine 11/21/2024 2:19 PM WAIVER ANALYST Chronic pain of left thumb Great toe pain, right SEDIMENTATION RATE Routine 11/21/2024 2: 19 PM WAIVER ANALYST Chronic pain of left thumb Great toe pain, right TSH WITH REFLEX Routine 11/21/2024 2:19 PM WAIVER ANALYST Family history of thyroid disease CREDIT CHARGE AUTHORIZER THIN PREP PAP SCREEN IMAGED Routine 01/06/2024 8:35 AM CDT ANTI HIV 1/2 Routine 04/16/2022 11:22 AM CDT Routine screening for STI (sexually transmitted infection) ANTI HCV Routine 10/24/2019 11:19 AM WAIVER ANALYST Encounter for assessment of STD exposure from Last 3 Months or Most Recently Relevant to Health Maintenance Results * TX PERCUTANEOUS TESTS W/ALLERGENIC EXTRACTS (11/28/2024 12:00 AM WAIVER ANALYST) us Jesus Phillips MD [facility] - ALLERGY AND IMMUNOLOG Y SERVICES Edited Result - Final * (ABNORMAL) ANTINUCLEAR ANTIBODIES TITER AND PATTERN ([facility] REFLEX ONLY) (11/21/2024 2:19 PM WAIVER ANALYST) HO TITER 1:80(H) titer [facility] Comment: A low level HO titer may [...] AC-2,4,5,29: Speck[employer] International Consensus on HO Patterns (https://doi.org/10.1515/lttx-6299-1345) 11/21/2024 2:19 PM WAIVER ANALYST 11/21/2024 2:20 PM WAIVER ANALYST Mackenzie King MD LABORATORY Final R esult [facility] [address] [place] [address], [place] [phone] [facility] [address] [place] [address] * SEDIMENTATION RATE (11/21/2024 2:19 PM WAIVER ANALYST) Pathologist [facility] SED RATE BY MODIFIED WESTERGREN 9 < OR = 20 mm/h [facility] [place] Blood BLOOD SPECIMEN / Unknown 11/21/2024 2:19 PM WAIVER ANALYST 11/21/2024 2:20 PM WAIVER ANALYST us Mackenzie King MD HEMATOLOGY Final R esult Performing Organization Address City/[facility]/ZIP Co de Phone Number [facility] [address] [place] [address], [place] [phone] [facility] [address] [place] [address] * (ABNORMAL) ANTINUCLEAR ANTIBODY BY IFA (11/21/2024 2:19 PM WAIVER ANALYST) Pathologist [facility] HO SCREEN, IFA POSITIVE( A) NEGATIVE [facility] [place] Comment: HO IFA is a first line screen for detecting the presence of up to approximately 150 autoantibodies in various autoimmune diseases. A positive HO IFA result is suggestive of autoimmune disease and reflexes to titer and pattern. Further laboratory testing may be considered if clinically indicated. For additional information, please refer to http://education.[employer]/faq/BSB578 (This link is being provided for informational/ educational purposes only.) Blood BLOOD SPECIMEN / Unknown 11/21/2024 2:19 PM WAIVER ANALYST 11/21/2024 2:20 PM WAIVER ANALYST us Mackenzie King MD CHEMISTRY Final R esult [facility] [address] [place] [address], [place] [phone] [facility] [address] [place] [address] * HEMOGLOBIN A1C (11/21/2024 2:19 PM WAIVER ANALYST) HEMOGLOBIN A1C 5.3 <5.7 % of total Hgb [facility] Comment: For the purpose of screening for the presence of diabetes: <5.7% Consistent with the absence of diabetes 5.7-6.4% Consistent with increased risk for diabetes (prediabetes) > or =6.5% Consistent with diabetes This assay result is consistent with a decreased risk of diabetes. Currently, no consensus exists regarding use of hemoglobin A1c for diagnosis of diabetes in children. According to [place] Diabetes Association (ADA) guidelines, hemoglobin A1c <7.0% represents optimal control in non- diabetic patients. Different metrics may apply to specific patient populations. Standards of Medical Care in Diabetes(ADA). Blood BLOOD SPECIMEN / Unknown 11/21/2024 2:19 PM WAIVER ANALYST 11/21/2024 2:20 PM WAIVER ANALYST Mackenzie King MD CHEMISTRY Final R esult [facility] [address] [address], [facility] [address] * TSH WITH REFLEX (11/21/2024 2:19 PM WAIVER ANALYST) TSH W/REFLEX TO FT4 0.69 mIU/L [facility] [place] Comment: Reference Range > or = 20 Years 0.40-4.50 Ranges First trimester 0.26-2.66 Second trimester 0.55-2.73 Third trimester 0.43-2.91 Blood BLOOD SPECIMEN / Unknown 11/21/2024 2:19 PM WAIVER ANALYST 11/21/2024 2:20 PM WAIVER ANALYST Mackenzie King MD CHEMISTRY Final R esult [facility] [address] [place] [address], [facility] [address] [place] [address] * (ABNORMAL) LIPID PANEL W REFLEX MEASURED LDL (11/21/2024 2:19 PM WAIVER ANALYST) CHOLESTEROL, TOTAL 197 <200 mg/dL [facility] [...] LDL-C. Jacques SS et al. DAISY. 2013;310(19): 8490-4795 (http://education.[employer]/faq/SPZ891) CHOL/HDLC RATIO 3.6 <5.0 (calc) [facility] NON HDL CHOLESTEROL 143(H) <130 mg/dL (calc) [facility] Comment: For patients with diabetes plus 1 major ASCVD risk factor, treating to a non-HDL-C goal of <100 mg/dL (LDL-C of <70 mg/dL) is considered a therapeutic option. Blood BLOOD SPECIMEN / Unknown 11/21/2024 2:19 PM WAIVER ANALYST 11/21/2024 2:20 PM WAIVER ANALYST Mackenzie King MD CHEMISTRY Final R esult [facility] [address] [facility] [place] [place] [address], [facility] [address] [place] [address] * RA QUANTITATIVE (11/21/2024 2:19 PM WAIVER ANALYST) Pathologist [facility] RHEUMATOID FACTOR <10 <14 IU/mL [facility] [place] Blood BLOOD SPECIMEN / Unknown 11/21/2024 2:19 PM WAIVER ANALYST 11/21/2024 2:20 PM WAIVER ANALYST Mackenzie King MD SEND OUTS Final R esult [facility] [address] [place] [address], [place] [phone] [facility] [address] [place] [address] * C-REACTIVE PROTEIN (11/21/2024 2:19 PM WAIVER ANALYST) Pathologist [facility] C-REACTIVE PROTEIN <3.0 <8.0 mg/L [facility] [place] Blood BLOOD SPECIMEN / Unknown 11/21/2024 2:19 PM WAIVER ANALYST 11/21/2024 2:20 PM WAIVER ANALYST us Mackenzie King MD CHEMISTRY Final R esult Performing Organization Address City/[facility]/ZIP Co de Phone Number [facility] [address] [place] [address], [place] [phone] [facility] [address] [place] [address] * (ABNORMAL) CBC AND DIFFERENTIAL (11/21/2024 2:19 PM WAIVER ANALYST) WHITE BLOOD CELL COUNT 9.0 3.8 - [...] BLOOD SPECIMEN / Unknown 11/21/2024 2:19 PM WAIVER ANALYST 11/21/2024 2:20 PM WAIVER ANALYST us Mackenzie King MD HEMATOLOGY Final R esult [facility] [address] [place] [address], [facility] [address] [place] [address] * COMP METABOLIC PANEL (11/21/2024 2:19 PM WAIVER ANALYST) [facility] GLUCOSE 78 65 - 99 mg/dL [facility] [...] ALT 17 6 - 29 U/L [facility] Blood BLOOD SPECIMEN / Unknown 11/21/2024 2:19 PM WAIVER ANALYST 11/21/2024 2:20 PM WAIVER ANALYST Mackenzie King MD CHEMISTRY Final R esult [facility] [address] [place] [address], [facility] [address] [place] [address] * CREDIT CHARGE AUTHORIZER THIN PREP PAP SCREEN IMAGED (01/06/2024 8:35 AM CDT) Case Report Gynecologic Cytology Report Case: [id number] Authorizing Provider: Pam Simmons NP Collected: 01/06/2024 0835 Ordering Location: [facility] Received: 01/06/2024 1730 First Screen: [place] Specimen: CREDIT CHARGE AUTHORIZER ThinPrep Vial Screening, Cervical 01/16/2024 12:40 PM CDT [facility] [place] [facility] INTERPRETATION/ RESULT NEGATIVE FOR INTRAEPITHELIAL LESION OR MALIGNANCY (NIL) (none) 01/16/2024 12:40 PM CDT [facility] IMEN ADEQUACY Satisfactory for evaluation Endocervical component present 01/16/2024 12:40 PM CDT [facility] [place] [facility] HPV REQUEST HPV and PAP 01/16/2024 12:40 PM CDT [facility] [place] [facility] Date of LMP 12/22/2023 01/16/2024 12:40 PM CDT [facility] Last Pap Date 06/13/2020 01/16/2024 12:40 PM CDT [facility] Last Pap Result NIL 12:40 PM CDT [facility] Menstrual Status Irregular Periods 01/16/2024 12:40 PM CDT [facility] Coleman Bx Done Today No 01/16/2024 12:40 PM CDT [facility] Additional Information 01/16/2024 12:40 PM CDT [facility] Comment: [facility] at [facility] - [address], [place] [address] Automated Review Successful 01/16/2024 12:40 PM CDT [facility] [place] [facility] Comment:Specimen processed s uccessfully by automated senior marketing specialist device, ThinPrep Imaging System, [employer] ANCILLARY TESTING CREDIT CHARGE AUTHORIZER HPV Ordered, Please see separate report 01/16/2024 12:40 PM CDT [facility] Note The pap test is [...] and malignant lesions. 01/16/2024 12:40 PM CDT [facility] Other (Cervical) 01/06/2024 8:35 AM CDT 01/06/2024 5:33 PM CDT Pam Simmons NP PATHOLOGY/CYTOLOGY Final Result [facility] [address] [place] [address], [place] * ANTI HIV 1/2 (04/16/2022 11:22 AM CDT) HIV-1/HIV-2 ANTIBODY Non-Reacti ve Non-Reacti ve 04/17/2022 12:35 AM CDT [facility] Comment:HIV-1 p24 and HIV-1/ HIV-2 Ab not detected. Blood BLOOD SPECIMEN / Unknown Venipuncture / Unknown 04/16/2022 11:22 AM CDT 04/16/2022 11:23 AM CDT Marie Mccrary MD SEND OUTS Final Resul t [facility] [address] [place] [address], [place] * ANTI HCV (10/24/2019 11:19 AM WAIVER ANALYST) HEPATITIS C ANTIBODY Non-React fabrice Non-React fabrice 10/24/2019 4:48 PM WAIVER ANALYST [facility] Comment:Antibodies to HCV no t detected; does not exclude the possibility of exposure to HCV. Blood BLOOD SPECIMEN / Unknown Venipuncture / Unknown 10/24/2019 11:19 AM WAIVER ANALYST 10/24/2019 11:20 AM WAIVER ANALYST Mireille SINCLAIR SEND OUTS Final Result [facility] [address] [place] [address], [place] from Last 3 Months or Most Recently Relevant to Health Maintenance Insurance [facility] INSURANCE Care Teams Human Service Coordinator Relationship Specialty Start Date End Date Mackenzie King MD [address] [place] [address] PCP - General Family Practice 08/22/13
== END 2024-12-20 10:45 | disposition home or self-care (01) ==
LOC: ED 10:15
PROVIDERS: Emergency Provider Student in an Organized Health Care Education/Training Program; PCP Student in an Organized Health Care Education/Training Program
DX: M26.601 Right temporomandibular joint disorder, unspecified (principal)
CPT/HCPCS: 99282; 99283